=== PATIENT | male | born 1955 | race Caucasian/White ===

== ENCOUNTER → 2019-08-30 14:17 | Outpatient (BNVA) | payer MEDICARE, BC, SELFPAY | PROVIDERS: Family Provider Family Medicine; PCP Family Medicine; Visit Provider Urology | DX: N40.1 Benign prostatic hyperplasia with lower urinary tract symptoms (principal); R97.20 Elevated prostate specific antigen [PSA]; N41.1 Chronic prostatitis | CPT/HCPCS: 81001; 84153 ==

== ENCOUNTER → 2019-10-17 10:49 | Outpatient (BNVA) | payer MEDICARE, BC, SELFPAY | PROVIDERS: Family Provider Family Medicine; PCP Family Medicine; Visit Provider Urology | DX: N41.1 Chronic prostatitis (principal); R97.20 Elevated prostate specific antigen [PSA]; N40.1 Benign prostatic hyperplasia with lower urinary tract symptoms | CPT/HCPCS: 81001 ==

== ENCOUNTER → 2019-12-30 10:59 | Outpatient (BNVA) | payer MEDICARE, BC, SELFPAY | PROVIDERS: Family Provider Family Medicine; PCP Family Medicine; Visit Provider Urology | DX: N41.1 Chronic prostatitis (principal); N40.1 Benign prostatic hyperplasia with lower urinary tract symptoms; Z20.828 Contact with and (suspected) exposure to other viral communicable diseases | CPT/HCPCS: 81001; 87635 ==

== ENCOUNTER 2020-01-05 17:59 | Inpatient (IN) | payer MEDICARE, BC, SELFPAY ==
[2020-01-03 11:20] VITALS: BMI 23.6
[2020-01-03 11:48] LABS: Basophils % 0.3 %; Eosinophils % 0.5 %; Hematocrit 51.5 % (42.0-52.0); Hemoglobin 16.9 g/dL (11.7-16.6); Lymphocytes # 2.3 10^3/uL (0.8-4.8); Lymphocytes % 31.1 %; Mean Corpuscular HGB Conc 32.8 g/dL (30.0-36.0); Mean Corpuscular Hemoglobin 29.9 pg (28.0-34.0); Mean Platelet Volume 10.7 fL (7.4-10.4); Monocytes # 0.7 10^3/uL (0.2-0.9); Neutrophils # 4.34 10^3/uL (1.8-7.7); Neutrophils % 58.8 %; Nucleated Red Blood Cells % 0 %; Platelet Count 200 10^3/cmm (130-400); Red Blood Count 5.66 10^6/uL (4.1-5.3); Red Cell Distribution Width 13.2 % (12.1-15.1); White Blood Count 7.4 10^3/uL (4.0-10.0)
--- NOTE | 2020-01-03 11:49 | ANES.PREANE2 ---
Pre-Anesthetic Assessment Pre-Anesthetic Assessment: Height/Weight: Height 1.73 m Weight 70.307 kg Preop Diagnosis: BPH with refractory obstruction Proposed Procedure: Operation Date: 01/05/20 12:00 Proposed Procedures p Cystoscopy 63945 N40.1(Not Applicable) - Luis Crain MD s Transurethral Resection/Vaporization Of Prostate(Not Applicable) - Luis Crain MD Familial anesthetic complications: None Social: Social History: No alcohol and No tobacco Exam: Pre-Anes Outpt Exam: alert, oriented x 3, clear to auscultation bilaterally and regular rate & rhythm Airway: Cervical ROM: WNL MP: 1 Dentition: Other (Poor denition, missing tooth) CV/HEM: CV/HEM: HTN Comments: Patient had extremely high BP (anxiety) preoperatively before his biopsy, which was fixed w/ versed. : Comments: BPH Musc/skel: Musc/skel: Lower Back Pain and OA/DJD Anesthetic Plan: ASA status: 2 Anesthesia: General Risk of > 500 ml blood loss (7ml/kg in children): No PFSH Anesthesia PFSH: Medical History BPH NOS w ur obs/LUTS Chronic prostatitis Elevated PSA Hypertension Surgical History (Updated 12/30/19 @ 12:05 by Luis Crain MD) History of prostate biopsy Fusion biopsy Dr. Iqbal November 2023 3 lesions consistent with PIRADS 5. All biopsies NEGATIVE History of prostate surgery Microwave of the prostate Family History Other Stroke Social History Smoking and tobacco status: never smoked Alcohol intake: current Alcohol intake frequency: holidays/special occasions only Adopted: No Caregiver/support person: No Lives independently: No Household members: spouse Marital status: Current occupational status: retired History of recent travel: No Current gender identity: Male Data Anesthesia CBC & Chem 7: 01/03/20 11:35 01/03/20 11:35 Other Labs: Laboratory Results - last 48 hr 01/03/20 11:35 WBC 7.4 RBC 5.66 H Hgb 16.9 H Hct 51.5 MCV 91.0 MCH 29.9 MCHC 32.8 RDW 13.2 Plt Count 200 MPV 10.7 H Neut % (Auto) 58.8 Lymph % (Auto) 31.1 [place] % (Auto) 9.0 Eos % (Auto) 0.5 Baso % (Auto) 0.3 Neut # (Auto) 4.34 Lymph # (Auto) 2.3 [place] # (Auto) 0.7 Eos # (Auto) 0.0 Baso # (Auto) 0.0 Nucleated RBC % (auto) 0 Nucleated RBCs # 0.0 Cardiac Studies: No Data to Display
[2020-01-03 12:08] LABS: Alanine Aminotransferase 20 U/L (0-41); Albumin Level 4.7 g/dL (3.5-5.2); Alkaline Phosphatase 79 IU/L (40-130); Anion Gap 17.1 (5-19); Aspartate Amino Transferase 23 U/L (0-40); Blood Urea Nitrogen 17 mg/dL (8-23); Calcium 9.9 mg/dL (8.5-10.5); Carbon Dioxide 23 mmol/L (22-29); Chloride 102 mmol/L (98-107); Creatinine Clr Calc Pharmacy 90.0557; Globulin 2.7 g/dL (1.3-4.6); Glucose 104 mg/dL (65-115); Osmolality Calculated 288 mOsm/kg (285-295); Potassium 4.1 mmol/L (3.5-5.1); Sodium 138 mmol/L (136-145); Total Bilirubin 0.5 mg/dL (0.15-1.2); Total Protein 7.4 g/dL (6.6-8.7)
--- NOTE | 2020-01-03 12:10 | ECG_ITS ---
[facility] Test Date: 2020-01-03 Pat Name: Sadiq Sheriff Department: Room: Gender: Male Person Investigator: : 1955 Requested By: Lois Reyes Order Number: [id number] Sameera MD: Evelina Palafox M.D. Measurements Intervals [place] Rate: 74 P: 52 AL: 147 QRS: 64 QRSD: 94 T: 58 QT: 391 QTc: 434 Interpretive Statements SINUS RHYTHM WITH SINUS ARRHYTHMIA INTERPRETATION BASED ON A DEFAULT AGE OF 40 YEARS No previous ECG available for comparison Electronically Signed On 01-04-2020 18:36:47 CDT by Evelina Palafox M.D. [id number]
[2020-01-05] VITALS (9 sets, daily range): BP systolic 124–152; BP diastolic 70–106; PULSE 63–88; RESP 14–22; TEMP 36.1–37; O2SAT 95–100
[2020-01-05] MEDS: sodium chloride 0.9% 1,000 ML 30 ML IV (13:24)
--- NOTE | 2020-01-05 14:20 | P.ANESUD_ITS ---
Pre-Anesthetic Update Pre-Anesthetic Assessment: Date of Surgery/Procedure: 01/05/20 Preop Griselda gnosis: BPH with refractory obstruction Proposed Procedure: Operation Date: 01/05/20 14:25 Proposed Procedures p Cystoscopy 88849 N40.1(Not Applicable) - Luis Crain MD s Transurethral Resection/Vaporization Of Prostate(Not Applicable) - Luis Crain MD Any changes to Pre-Anesthetic Assessment?: No Last Intake: Intake Last Liquid Date 01/05/20 Last Liquid Time 01:00 Last Solid Date 01/04/20 Last Solid Time 10:00 Vitals: Temperature 98.6 F 01/05/20 13:08 Temperature Source Temporal Artery S can 01/05/20 13:08 Pulse Rate 84 01/05/20 13:08 Respiratory Rate 18 01/05/20 13:08 Blood Pressure 152/106 01/05/20 13:08 Blood Pressure Lisha n 121 01/05/20 13:08 Pulse Oximetry 97 01/05/20 13:08 Oxygen Delivery Me thod 01/05/20 13:08 Exam: Pre-Anes Outpt Exam: alert, oriented x 3, clear to auscultation bilaterally and regular rate & rhythm Cardiac Studies: No Data to Display
--- NOTE | 2020-01-05 15:36 | W.PM.OPSUD ---
Surgery/Procedure H&P Update DATE OF PROCEDURE: January 05, 2020 DATE H&P PERFORMED: 12/30/19 H&P UPDATE INFORMATION: I have reviewed H&P completed within last 30 days, I have examined patient prior to procedure, No changes to prior documentation and H&[place] is in [facility] [place] date indicated PREOP DIAGNOSIS: BPH with refractory obstruction PLANNED PROCEDURE: Operation Date: 01/05/20 14:25 Proposed Procedures p Cystoscopy 76571 N40.1(Not Applicable) - Luis Crain MD s Transurethral Resection/Vaporization Of Prostate(Not Applicable) - Luis Crain MD
--- NOTE | 2020-01-05 15:37 | PM.OP ---
Operative Report Date of procedure: January 05, 2020 Pre-op Diagnosis: BPH with refractory obstruction Post-op diagnosis: same Pathology: Prostatic chips Surgeon: Breann Anesthesia: General Estimated blood loss: Minimal Urine output: Not measured Complications: None Findings: HUGE prostate. Median lobe was completely filling the prostatic fosse at the bladder neck. Large bilateral lobes. Wide open at the completion of the procedure with good hemostasis. All chips cleared from the bladder. Condition: stable Disposition: PACU Brief History: Mr. Sheriff is a delightful 64-year-old white male with a longstanding history of BPH/obstructive symptoms with a remote microwave therapy of the prostate that was minimally effective in for only for short-term. Has been tried on medical therapy and did not tolerate standard alpha-hema therapy but ultimately was able to tolerate Rapaflo. Has been on finasteride long-term as well. At best poor response. He has a problem with intermittent retention requiring self-catheterization and at times very prolonged voiding just to empty his bladder when he describes it up to maybe 30 minutes at times. Has been very reluctant for a long time to consider further intervention and stated on multiple occasions that he was more willing to put up with the symptoms then consider surgery. Over time though the progression of the symptoms I think persuaded him to consider intervention. He has done a lot of research and ultimately after detailed discussion, multiple question and answer sessions he elected to proceed with surgical intervention with transurethral resection/vaporization of the prostate. Procedure: After routine preoperative evaluation examination and obtaining of informed consent he was taken to the operating suite on 01/05/2020 where general anesthesia was administered without difficulty after appropriate timeout was performed, SCDs confirmed to be functioning, preoperative antibiotics administered, beta-hema protocol confirmed. Prepped and draped in usual sterile fashion in dorsolithotomy position pain careful attention to avoiding pressure points. 21 Sudanese cystoscope with 30 degree lens was introduced into the urethral meatus and advanced into the bladder under videoscopy. Bladder was systematically examined. Prostate showed trilobar enlargement with large intravesically protruding median lobe. Bladder showed moderate trabeculation with cellule formation. These findings were consistent with the previously identified findings on earlier evaluation with cystoscopy. The urethra was calibrated with [place] sounds and easily accommodated 30 Sudanese. Well-lubricated 25 Sudanese continuous flow resectoscope sheath with visual obturator in place was advanced into the bladder without difficulty. The bipolar gyrus system was utilized with the super sect and button probe for vaporization. The orifices were identified and well away from the bladder neck. The verumontanum was easily identified as well. Resection was begun on the median lobe and it was resected down to the posterior bladder neck. The left lateral lobe was then resected from the 12:00 to 5 o'clock position from the bladder neck out to the verumontanum but not distal to it. The right lateral lobe was then resected as well in the same longitudinal extent and depth from the 12:00 to 7 o'clock position. The remaining tissue on the floor was also then resected in the same longitudinal extent and depth. Large amount of tissue was resected. The button probe was used intermittently for vaporization and hemostasis. The button probe was used for final hemostasis and sculpting of the prostatic fossa. All the chips were confirmed to be evacuated from the bladder (StormWind evacuator utilized). The orifices were uninvolved in the resection and the tissue distal to the verumontanum was also uninvolved. Bladder drained with a 20 Sudanese three-way Mcdaniel catheter with 30 cc balloon. Continuous bladder irrigation with normal saline was initiated. Efflux was clear. Tolerated the procedure well without complications and was awakened in the operating room and returned to cover him in stable condition.
[2020-01-05] MEDS: lidocaine 2% Urojet 20 mL TOPICAL (16:15)
[2020-01-05] MEDS: finasteride 5 mg Tablet PO (19:56)
[2020-01-05] MEDS: dextrose 5%-sod chloride 0.9% 1,000 ML 125 ML IV (19:56)
[2020-01-05] MEDS: morphine 4 mg/mL SDV 1 mL 2 MG IVP (20:31)
[2020-01-06] MEDS: ceFAZolin 1,000 MG in sodium chloride 0.9% (plus) 50 ML 100 MG IV ×2 (00:14→08:27)
[2020-01-06] MEDS: dextrose 5%-sod chloride 0.9% 1,000 ML 125 ML IV ×3 (03:33→20:37)
[2020-01-06 08:15] VITALS: BP 124/70; PULSE 57; RESP 18; TEMP 36.6; O2SAT 100
[2020-01-06] MEDS: HYDROcodone-acetaminophen 5-325 mg Tablet 1 TAB PO (08:27)
[2020-01-06] MEDS: finasteride 5 mg Tablet PO (08:27)
[2020-01-06 11:42] VITALS: BP 115/63; PULSE 63; RESP 18; TEMP 36.8; O2SAT 98
--- NOTE | 2020-01-06 12:31 | ANE.PACU2 ---
Inpatient post-anesthesia follow up: Airway intact: Yes Vital signs: Temperature 98.2 F Pulse Rate 63 Respiratory Rate 18 Blood Pressure 115/63 Pulse Oximetry 98 Oxygen Delivery Me thod Room Air Oxygen Flow Rate 8 Fraction of Inspir ed Oxygen Hydration adequate: Yes Nausea and vomiting: No Pain level: 1 Mental status: Baseline
--- NOTE | 2020-01-06 12:32 | P.PN_ITS ---
Subjective Subjective: Interval history: Postoperative day #1 transurethral section of prostate gland (large). Good night sleep. CBI required to keep urine pink. No significant pain, fever chills etc. No bladder distention. Tried to taper the CBI today but his urine would increase slightly and red color persisted. No clots. Therefore recommended change to inpatient status with expectation of care extending over 2 midnights plus. Vitals/I&O/Wt Last Vital Signs Temp 98.2 F 01/06/20 11:42 Pulse 63 01/06/20 11:42 Resp 18 01/06/20 11:42 BP 115/63 01/06/20 11:42 Pulse Ox 98 01/06/20 11:42 01/05/20 01/06/20 01/06/20 22:59 06:59 14:59 Intake Total 950 / 950 1192.083 / 2142.083 50 / 50 Output Total 2350 / 2350 1275 / 3625 400 / 400 Balance -1400 / -1400 -82.917 / -1482.917 -350 / -350 Physical Exam Narrative: EXAM NARRATIVE: Alert and oriented no acute distress No audible wheezing. Unlabored respiration. Abdomen is soft nontender with no abdominal distention. Urine is light pink with CBI running at low rate. Good range of motion and movement of all extremities. No excessive anxiety. Urinary Catheter Management^: 3-way Urethral CBI: Cath Placed During This Visit: yes Reason for Continuing Indwelling Catheter: Other Urinary Catheter Date of Insertion: 01/05/20 Urinary Catheter Time of Insertion: 17:55 Data : 01/03/20 11:35 01/03/20 11:35 A&P Assessment and plan (1) BPH NOS w ur obs/LUTS: Status post TURP We will change to inpatient status due to inability to stop the CBI at this point. We will look to discharge tomorrow. Status: Acute Attestations Medical Necessity Statement*: Still requiring CBI. Cannot be discharged yet. Coding Level of Care Code Acute Him Clerk for [facility] Diagnoses BPH NOS w ur obs/LUTS N40.1
[2020-01-06] MEDS: sennosides 8.6 mg Tablet 17.2 MG PO (14:00)
--- NOTE | 2020-01-06 14:08 | PC.NURSE ---
cbi continues to flow well , clear in tube slightly pink in bag. patient averaging 100cc /hr in urine. ivf continued. patient worried that he has not had a good stool. lots of flatulence. asked for his stimulent, given early .
[2020-01-06 16:13] VITALS: BP 111/62; PULSE 65; RESP 18; TEMP 36.9; O2SAT 98
[2020-01-06 19:29] VITALS: BP 113/71; PULSE 57; RESP 20; TEMP 36.4; O2SAT 98
[2020-01-07] VITALS: BP 101/60; PULSE 54; RESP 18; TEMP 36.7; O2SAT 98
[2020-01-07 04:00] VITALS: BP 114/67; PULSE 60; RESP 18; TEMP 36.8; O2SAT 98
[2020-01-07] MEDS: dextrose 5%-sod chloride 0.9% 1,000 ML 125 ML IV (04:20)
[2020-01-07 08:34] VITALS: BP 116/67; PULSE 64; RESP 18; TEMP 36.7; O2SAT 98
[2020-01-07] MEDS: finasteride 5 mg Tablet PO (08:37)
[2020-01-07] MEDS: bisacodyl 5 mg Tablet 10 MG PO (09:27)
--- NOTE | 2020-01-07 09:57 | PC.NURSE ---
Void number 1 output 100 ml , dark red, no clots - post void residual 229 ml
--- NOTE | 2020-01-07 10:59 | PC.NURSE ---
1010 - 200 ml out / 294 retained . 1035 - 450 out /180 retained . 1100 - 250 out / 197 retained
--- NOTE | 2020-01-07 11:34 | PC.CHAP ---
Pastoral Care Encounter/Spiritual Assessment Type of Contact [] Declined janitorial cleaner visit [] Patient/Family/Request visit [] Outpatient visit [] Follow-up visit [] Physician referral [] Code/Alert [X] Routine visit [] Staff referral [] Actively dying [] Patient sleeping [] Family support [] [] Out of room [] Palliative care [] [] Receiving care in room [] Pre-surgical visit [] Trauma [] Long length of stay [] ICU visit [] Other: Relational/Emotional Strength [] Patient feels connected with others/family/visitors/staff [] Distress [] Loneliness/isolation [] Abandonment Spirituality of Patient [] Person of Pili [] Attends [facility] of their Pili [] Believes in Prayer [] Reads Bible or Faith materials [] There are Spiritual issues to be addressed Truck Cleaner Interventions [X] Prayer [] Active listening [] Non-anxious presence [] Spiritual/emotional support [] Crisis/trauma care [] Spiritual counseling [] Bereavement support [] Provided bereavement packet [] Provided Bible/devotional materials [] Provided toy/stuffed animal, coloring book to patient or family member [] Provided Communion [] Anointing/[place] [] Salvation [] Completed spiritual assessment [] Other: Impact on Illness or Injury [] Angry [] Fearful [] Anxious [] Often cries [] Exhaustion [] Unable to work [] Unable to attend mandaeism [] Unable to walk/stand [] Unable to read [] Unable to drive [] Unable to eat/drink [] Unable to sleep [] Unable to be with family [] Patient intubated [] Other: Summary Time spent with patient
[2020-01-07 11:47] VITALS: BP 146/85; PULSE 62; RESP 18; TEMP 36.5; O2SAT 99
--- NOTE | 2020-01-07 12:07 | P.DS_ITS ---
Discharge Providers Date of Admission: 01/06/20 12:32 Date of Discharge: January 07, 2020 Attending Provider at Admission: Luis Crain MD Attending Provider at Discharge: Luis Crain MD Primary Care Provider: Ten Parikh MD Diagnoses at Discharge Discharge Diagnosis (1) BPH NOS w ur obs/LUTS: Status: Acute Problem details: Longstanding severe BPH/obstruction with reluctance to pursue surgical intervention after failure of microwave therapy and prolonged medical therapy for the symptoms. Often and near retention. TURP/TUVP 01/06/2020 Reason for Visit Reason for Visit: cystoscopy Hospital Course Hospital Course: Admitted on the day of procedure which went well. H prostate. Trilobar enlargement. Very large obstructing intravesically protruding median lobe. On postoperative day #1 his urine was still slightly pink with CBI running and for that reason he was converted to an inpatient status because of his care crossing 2 midnights. On postoperative day #2 his urine was looking much better and the catheter was removed and he voided spontaneously with clearing urine. Post void residuals were mildly elevated but he was voiding good volumes. Did have some constipation. Was treated for that and did well. Discharged on the afternoon of postoperative day #2 Physical Exam Const: COMMON NORMALS: no acute distress, alert and well nourished GENERAL APPEARANCE: well kempt and well developed ORIENTATION/CONSCIOUSNESS: not confused Resp: COMMON NORMALS: normal respiratory effort EFFORT & INSPECTION: No labored and No Actively coughing Neuro: COMMON NORMALS: no focal motor deficits SENSORIUM/ORIENTATION: Yes alert Psych: COMMON NORMALS: mental status grossly normal APPEARANCE: Yes grossly normal and Yes well kempt ATTITUDE: Yes calm and Yes engaged Urinary Catheter Management^: 3-way Urethral CBI: Cath Placed During This Visit: yes, but has since been removed by the nurse Reason for Continuing Indwelling Catheter: Decision to DC Catheter Urinary Catheter Date of Insertion: 01/05/20 Urinary Catheter Time of Insertion: 17:55 Date Urinary Catheter Removed: 01/07/20 Time Urinary Catheter Discontinued: 09:00 Discharge Data Data Completed and Pending: Pending at discharge Category Date Time Status Pathology: Surgic al [PTH] Routine Pth 01/05/20 17:53 Received Vitals: Last Vital Signs Temp 97.7 F 01/07/20 11:47 Pulse 62 01/07/20 11:47 Resp 18 01/07/20 11:47 BP 146/85 01/07/20 11:47 Pulse Ox 99 01/07/20 11:47 Discharge Plan Discharge Patient Disposition: Home Condition: Stable Prescriptions: New cephalexin 500 mg capsule 500 mg PO Q8H 7 Days Qty: 15 RF: 0 Continued benazepril 20 mg tablet 30 mg PO DAILY RF: 0 docusate sodium [Stool Softener] 100 mg capsule 100 mg PO DAILY RF: 0 silodosin 8 mg capsule 8 mg PO DAILY Qty: 30 RF: 12 ascorbic acid (vitamin C) 500 mg capsule 1,000 mg PO DAILY RF: 0 iodine strong (Lugols) 5 % Solution See Rx Instructions .ROUTE .COMPLEX RF: 0 vitamin B complex Tablet See Rx Instructions .ROUTE .COMPLEX RF: 0 finasteride 5 mg tablet 5 mg PO DAILY RF: 0 magnesium citrate 1 tab PO DAILY RF: 0 selenium 1 tab PO DAILY RF: 0 vitamin A See Rx Instructions .ROUTE .COMPLEX RF: 0 vitamin D3-vitamin K2 1 tab PO DAILY RF: 0 zinc 1 tab PO DAILY RF: 0 Discharge Orders: Discharge Order (Routine); Ordered 01/07/20 Ordered By: Luis Crain Referrals: Luis Crain MD [Physician] - 02/17/20 (6 weeks follow-up with [facility] [place] [facility] will call you with an appointment. If they don't call you please call [phone]) Discharge Diet: Usual diet Discharge Activity: Limit activity as instructed Activity Restrictions/Additional Instructions: 1. It is important not to strain. This includes with bowel movements. Use laxatives as needed to prevent constipation. 2. Avoid lifting >10 pounds for 3 weeks. 3. Recheck in 6 weeks in the office but please feel free to call sooner if you have any concerns or questions. 4. It is normal to see intermittent bleeding and even blood clot passage especially with a large prostate like you are as well as. Sometimes after approximately 10 to 14 days a scab will pass and be followed by some intermittent in the urine. Increase fluids at this time and focus more on decreasing activity. 5. You can use the self catheter if needed. Emptying very good though in the hospital. 6. Please call if you have any concerns or question. The hospital lacquer spray booth operator can always reach me. Discharge Attestations Time Spent in Discharge Care*: greater than 30 min Quality Metrics Clinical Quality Measures During this hospital stay, did patient experience: None Coding Level of Care Code Acute Retail Inventory Control Clerk for [employer] Fwd Exam Expanded Problem Focused Diagnoses BPH NOS w ur obs/LUTS N40.1
[2020-01-07 12:20] VITALS: BP 146/85; PULSE 62; RESP 18; TEMP 36.5; O2SAT 99
--- NOTE | 2020-01-07 13:37 | PC.NURSE ---
pt discharge instructions explained and pt verbalized understanding. pt iv taken out and intact. pt taken to er entrance via wheelchair.
[2020-01-07 13:40] VITALS: BP 146/85; PULSE 62; RESP 18; TEMP 36.5; O2SAT 99
== END 2020-01-07 13:41 | disposition home or self-care (01) | DRG 713 ==
LOC: MEDSURG 17:59
PROVIDERS: Admitting Provider Urology; PCP Family Medicine; Visit Provider Urology
PROC: 0TJB8ZZ Inspection of Bladder, Via Natural or Artificial Opening Endoscopic (ICD-10-PCS; CPT 52000; principal; 2020-01-05 14:25)
PROC: 0VT08ZZ Resection of Prostate, Via Natural or Artificial Opening Endoscopic (ICD-10-PCS; CPT 52601; 2020-01-05 14:25)
DX: N40.1 Benign prostatic hyperplasia with lower urinary tract symptoms (principal); N13.8 Other obstructive and reflux uropathy; R33.8 Other retention of urine
CPT/HCPCS: 12345; 36415; 80053; 85025; 88305; 93005; 96375; G0378; J0690; J1100; J2270; J2405; J2704; J2710; J2765; J3010; J3490; J7030

== ENCOUNTER → 2020-08-17 13:32 | Outpatient (BNVA) | payer MEDICARE, BC, SELFPAY | PROVIDERS: PCP Family Medicine; Visit Provider Urology | DX: N40.1 Benign prostatic hyperplasia with lower urinary tract symptoms (principal); R30.0 Dysuria; R31.29 Other microscopic hematuria; N39.9 Disorder of urinary system, unspecified; R31.21 Asymptomatic microscopic hematuria; R97.20 Elevated prostate specific antigen [PSA]; N41.1 Chronic prostatitis | CPT/HCPCS: 81003; 87086; 88112 ==

== ENCOUNTER → 2020-10-31 13:18 | Outpatient (BNVA) | payer MEDICARE, BC, SELFPAY | PROVIDERS: PCP Family Medicine; Visit Provider Urology | DX: R31.21 Asymptomatic microscopic hematuria (principal); N40.1 Benign prostatic hyperplasia with lower urinary tract symptoms; N41.1 Chronic prostatitis | CPT/HCPCS: 81003 ==

== ENCOUNTER → 2021-01-30 13:01 | Outpatient (BNVA) | payer MEDICARE, BC, SELFPAY | PROVIDERS: PCP Family Medicine; Visit Provider Urology | DX: R31.21 Asymptomatic microscopic hematuria (principal) | CPT/HCPCS: 81003 ==

== ENCOUNTER → 2021-09-05 13:42 | Outpatient (BNVA) | payer MEDICARE, BC, SELFPAY | PROVIDERS: PCP Family Medicine; Visit Provider Urology | DX: N40.1 Benign prostatic hyperplasia with lower urinary tract symptoms (principal); N41.1 Chronic prostatitis; R31.21 Asymptomatic microscopic hematuria; R97.20 Elevated prostate specific antigen [PSA] | CPT/HCPCS: 51741; 51798; 81003; 99213 ==

== ENCOUNTER 2022-04-10 14:11 | Outpatient (CLI) | payer MEDICARE, BC, SELFPAY ==
[2022-04-10 16:02] LABS: Prostate Specific AG Urology 3.54 ng/mL (0-4)
== END 2022-04-10 14:12 | disposition home or self-care (01) ==
LOC: LAB 14:17
PROVIDERS: PCP Family Medicine; Visit Provider Urology
DX: R97.20 Elevated prostate specific antigen [PSA] (principal)
CPT/HCPCS: 84153

== ENCOUNTER → 2022-04-21 14:23 | Outpatient (BNVA) | payer MEDICARE, BC, SELFPAY | PROVIDERS: PCP Family Medicine; Visit Provider Urology | DX: N40.1 Benign prostatic hyperplasia with lower urinary tract symptoms (principal); N41.1 Chronic prostatitis; N13.8 Other obstructive and reflux uropathy; R97.20 Elevated prostate specific antigen [PSA] | CPT/HCPCS: 51741; 51798; 81003; 99213 ==

== ENCOUNTER → 2022-10-01 10:56 | Outpatient (BNVA) | payer MEDICARE, BC, SELFPAY | PROVIDERS: PCP Family Medicine; Visit Provider Urology | DX: N40.1 Benign prostatic hyperplasia with lower urinary tract symptoms (principal); N41.1 Chronic prostatitis; R97.20 Elevated prostate specific antigen [PSA] | CPT/HCPCS: 81003 ==